=== PATIENT | female | born 1960 | race Caucasian/White ===

== ENCOUNTER 2021-05-29 00:19 | Inpatient (IN) | payer OTHER ==
[~2021-05-29] VITALS: Ht 154.9 cm; Wt 61.7 kg
[~2021-05-29 00:19] MED LIST: INSU3INS6 SQ; METF-416 PO
[2021-05-29] MEDS ORDERED: SODIUM CHLORIDE 0.9% 1000ML BAG (SEPSIS BOLUS) IV ONE (02:15)
[2021-05-29] MEDS ORDERED: CEFTRIAXONE 1 G PREMIX 50 ML IV ONE (02:15)
[2021-05-29 03:13] LABS: HEMATOCRIT. 36.3 % (36.0-48.0); HEMOGLOBIN. 12.4 g/dL (12.0-16.0); MEAN CORPUSCULAR HEMOGLOBIN 29.3 pg (28.0-32.0); MEAN CORPUSCULAR VOLUME 85.9 fL (81.0-99.0); PLATELET 199 x1000/uL (130-400); RED BLOOD CELL COUNT 4.23 mill/uL (4.2-5.4); RED CELL DISTRIBUTION WIDTH 12.5 % (11.6-14.6)
[2021-05-29 03:23] LABS: CHLORIDE 96 mEq/L (98-107)
[2021-05-29 04:13] LABS: PLATELET ESTIMATE NORMAL
[2021-05-29] MEDS ORDERED: ACETAMINOPHEN 325MG TABLET PO SCH (10:00)
[2021-05-29 12:55] VITALS: BP 101/49
[2021-05-29] MEDS ORDERED: ACETAMINOPHEN 325MG TABLET PO PRN (13:45)
[2021-05-29] MEDS ORDERED: HYDROCODONE/ACETAMINOPHEN 5/325MG TABLET PO PRN (13:45)
[2021-05-29] MEDS ORDERED: DEXTROSE 50% WATER 50ML SYRINGE IV PRN (13:45)
[2021-05-29] MEDS ORDERED: IPRATROPIUM/ALBUTEROL 0.5-3(2.5)MG/3ML NEB HHN PRN (13:45)
[2021-05-29] MEDS ORDERED: LORAZEPAM 0.5MG TABLET PO PRN (13:45)
[2021-05-29] MEDS ORDERED: NALOXONE HCL 0.4MG/ML VIAL IV PRN (14:00)
[2021-05-29] MEDS ORDERED: PIPERACILLIN/TAZOBACTAM 3.375 G in DEXTROSE 5% WATER 50 ML IV SCH (14:00)
[2021-05-29 16:00] VITALS: BP 91/43
[2021-05-29] MEDS: BLOOD SUGAR DIAGNOSTIC STRIP TEST SCH ×2 (17:18→21:23)
[2021-05-29] MEDS: SODIUM CHLORIDE 0.9% 1,000 ML IV SCH (18:20)
[2021-05-29] MEDS: INSULIN LISPRO 100 UNITS/ML SUBCUT SCH ×2 (18:22→21:24)
[2021-05-29 20:00] VITALS: BP 102/43
[2021-05-29 20:56] LABS: PHOSPHORUS 2.1 mg/dL (2.5-4.9)
[2021-05-29] MEDS: MORPHINE SULFATE 2 MG/ML CPJ (NOT FOR IM USE) IV PRN (21:23)
[2021-05-29] MEDS: PIPERACILLIN/TAZOBACTAM 3.375 G in DEXTROSE 5% WATER 50 ML IV SCH (21:23)
[2021-05-29] MEDS ORDERED: INSULIN GLARGINE UD 100 UNITS/ML SYR SUBCUT SCH ×2 (22:00→22:30)
[2021-05-30] VITALS: BP 100/48
[2021-05-30 04:00] VITALS: BP 106/39
[2021-05-30] MEDS: PIPERACILLIN/TAZOBACTAM 3.375 G in DEXTROSE 5% WATER 50 ML IV SCH ×2 (05:45→13:34)
[2021-05-30] MEDS: SODIUM CHLORIDE 0.9% 1,000 ML IV SCH ×3 (05:46→22:05)
[2021-05-30] MEDS: BLOOD SUGAR DIAGNOSTIC STRIP TEST SCH ×4 (06:08→21:00)
[2021-05-30 06:18] LABS: HEMATOCRIT. 32.1 % (36.0-48.0); MEAN CORPUSCULAR HEMOGLOBIN 29.2 pg (28.0-32.0); MEAN CORPUSCULAR VOLUME 85.2 fL (81.0-99.0); MEAN PLATELET VOLUME 10.3 fl (7.4-10.4); PLATELET 183 x1000/uL (130-400); RED BLOOD CELL COUNT 3.76 mill/uL (4.2-5.4); RED CELL DISTRIBUTION WIDTH 12.5 % (11.6-14.6)
[2021-05-30 06:58] LABS: CHLORIDE 104 mEq/L (98-107)
[2021-05-30 07:09] LABS: CLARITY URINE CLOUDY (CLEAR); COLOR URINE YELLOW (YELLOW); KETONES URINE 1+ (NEGATIVE); LEUKOCYTE ESTERASE URINE 1+ (NEGATIVE); NITRITE URINE NEGATIVE (NEGATIVE); OCCULT BLOOD URINE TRACE (NEGATIVE); PH URINE 5.5 (4.5-8.0); PROTEIN URINE 2+ (NEGATIVE); SPECIFIC GRAVITY URINE 1.023 (1.005-1.030); UROBILINOGEN URINE 0.2 E.U./dL (0.2-1.0)
[2021-05-30 07:30] LABS: *AMPHETAMINES SCREEN URINE NEGATIVE (NEGATIVE); *BARBITURATES SCREEN URINE NEGATIVE (NEGATIVE)
[2021-05-30 07:31] LABS: *BENZODIAZEPINES SCREEN URINE NEGATIVE (NEGATIVE); *COCAINE SCREEN URINE NEGATIVE (NEGATIVE); CANNABINOID URINE SCREEN NEGATIVE (NEGATIVE); METHADONE URINE SCREEN NEGATIVE (NEGATIVE); OPIATES URINE SCREEN PRESUMTIVE POSITIVE (NEGATIVE); PHENCYCLIDINE URINE SCREEN NEGATIVE (NEGATIVE)
[2021-05-30 08:11] VITALS: BP 138/78
[2021-05-30] MEDS: INSULIN LISPRO 100 UNITS/ML SUBCUT SCH ×4 (08:15→22:08)
[2021-05-30] MEDS ORDERED: BISACODYL 10MG SUPP PR SCH (08:15)
[2021-05-30] MEDS: MORPHINE SULFATE 2 MG/ML CPJ (NOT FOR IM USE) IV PRN ×2 (08:16→23:11)
[2021-05-30 12:23] VITALS: BP 111/63
[2021-05-30] MEDS: INSULIN GLARGINE UD 100 UNITS/ML SYR SUBCUT SCH ×2 (13:35→22:09)
[2021-05-30] MEDS: ONDANSETRON HCL 4MG/2ML INJ IV PRN ×2 (14:08→23:01)
[2021-05-30 16:30] VITALS: BP 136/59
[2021-05-30] MEDS ORDERED: CEFTRIAXONE 2 G PREMIX 50 ML IV SCH (19:45)
[2021-05-30 20:00] VITALS: BP 108/48
[2021-05-30 21:29] LABS: PLATELET ESTIMATE NORMAL
[2021-05-30] MEDS: CEFTRIAXONE 2 G in DEXTROSE 5% WATER 50 ML IV SCH (22:05)
[2021-05-31] VITALS: BP 122/59
[2021-05-31 04:00] VITALS: BP 138/72
[2021-05-31 06:27] LABS: CHLORIDE 102 mEq/L (98-107)
[2021-05-31 06:32] LABS: BASOPHILS % 0.3 % (0.0-2.0); EOSINOPHILS % 0.1 % (0.0-5.0); HEMATOCRIT. 32.7 % (36.0-48.0); HEMOGLOBIN. 10.9 g/dL (12.0-16.0); LYMPHOCYTES % 7.2 % (20.0-50.0); MEAN CORPUSCULAR HEMOGLOBIN 28.4 pg (28.0-32.0); MEAN PLATELET VOLUME 10.6 fl (7.4-10.4); MONOCYTES % 7.5 % (2.0-8.0); NEUTROPHILS % 84.9 % (40.0-76.0); PLATELET 208 x1000/uL (130-400); RED BLOOD CELL COUNT 3.85 mill/uL (4.2-5.4); RED CELL DISTRIBUTION WIDTH 12.7 % (11.6-14.6)
[2021-05-31] MEDS: BLOOD SUGAR DIAGNOSTIC STRIP TEST SCH ×4 (06:42→21:00)
[2021-05-31 08:00] VITALS: BP 130/51
[2021-05-31] MEDS: INSULIN LISPRO 100 UNITS/ML SUBCUT SCH ×4 (08:49→22:13)
[2021-05-31] MEDS: ONDANSETRON HCL 4MG/2ML INJ IV PRN ×2 (08:55→16:30)
[2021-05-31] MEDS: INSULIN GLARGINE UD 100 UNITS/ML SYR SUBCUT SCH ×2 (09:57→22:12)
[2021-05-31] MEDS: SODIUM CHLORIDE 0.9% 1,000 ML IV SCH ×2 (10:48→22:10)
[2021-05-31] MEDS: MORPHINE SULFATE 2 MG/ML CPJ (NOT FOR IM USE) IV PRN ×2 (11:45→16:30)
[2021-05-31 12:00] VITALS: BP 138/57
[2021-05-31] MEDS: FAMOTIDINE 20MG TABLET PO SCH ×2 (12:37→22:11)
[2021-05-31 16:00] VITALS: BP 171/78
[2021-05-31] MEDS: CLONIDINE 0.1MG TABLET PO PRN (16:02)
[2021-05-31] MEDS: AMLODIPINE 5MG TABLET PO SCH (17:54)
[2021-05-31 20:00] VITALS: BP 92/60
[2021-05-31] MEDS: CEFTRIAXONE 2 G in DEXTROSE 5% WATER 50 ML IV SCH (22:11)
[2021-06-01] VITALS: BP 91/50
[2021-06-01] MEDS: MORPHINE SULFATE 2 MG/ML CPJ (NOT FOR IM USE) IV PRN (00:15)
[2021-06-01] MEDS: ONDANSETRON HCL 4MG/2ML INJ IV PRN ×3 (00:15→22:46)
[2021-06-01 04:00] VITALS: BP 139/63
[2021-06-01] MEDS: SODIUM CHLORIDE 0.9% 1,000 ML IV SCH ×2 (05:48→17:14)
[2021-06-01] MEDS: BLOOD SUGAR DIAGNOSTIC STRIP TEST SCH ×4 (05:48→21:05)
[2021-06-01 07:15] LABS: HEMATOCRIT. 33.9 % (36.0-48.0); HEMOGLOBIN. 11.3 g/dL (12.0-16.0); MEAN CORPUSCULAR HEMOGLOBIN 28.2 pg (28.0-32.0); MEAN CORPUSCULAR VOLUME 84.6 fL (81.0-99.0); MEAN PLATELET VOLUME 10.2 fl (7.4-10.4); PLATELET 198 x1000/uL (130-400); RED BLOOD CELL COUNT 4.01 mill/uL (4.2-5.4)
[2021-06-01 07:26] LABS: CHLORIDE 100 mEq/L (98-107)
[2021-06-01] MEDS: INSULIN LISPRO 100 UNITS/ML SUBCUT SCH ×4 (07:50→21:00)
[2021-06-01 08:00] VITALS: BP 144/70
[2021-06-01] MEDS: AMLODIPINE 5MG TABLET PO SCH (09:01)
[2021-06-01] MEDS: FAMOTIDINE 20MG TABLET PO SCH ×2 (09:01→21:08)
[2021-06-01] MEDS: INSULIN GLARGINE UD 100 UNITS/ML SYR SUBCUT SCH ×2 (10:42→21:06)
[2021-06-01 12:30] VITALS: BP 141/55
[2021-06-01 16:00] VITALS: BP 119/56
[2021-06-01 17:04] LABS: PLATELET ESTIMATE NORMAL
[2021-06-01] MEDS: METOCLOPRAMIDE HCL 10MG/2ML VIAL IV PRN (17:11)
[2021-06-01] MEDS: ACETAMINOPHEN 325MG TABLET PO PRN (17:14)
[2021-06-01 20:00] VITALS: BP 117/55
[2021-06-01] MEDS: CEFTRIAXONE 2 G in DEXTROSE 5% WATER 50 ML IV SCH (21:08)
[2021-06-02] VITALS (7 sets, daily range): BP systolic 122–184; BP diastolic 58–85
[2021-06-02] MEDS ORDERED: POTASSIUM CHLORIDE INJ 40 MEQ in DEXT 5% WATER 250 ML IV ONE (00:15)
[2021-06-02] MEDS: ACETAMINOPHEN 325MG TABLET PO PRN (00:45)
[2021-06-02] MEDS ORDERED: KCL 20MEQ/100ML PREMIX 100 ML IV NR ×2 (01:00→03:00)
[2021-06-02] MEDS: SODIUM CHLORIDE 0.9% 1,000 ML IV SCH ×3 (02:00→22:23)
[2021-06-02] MEDS: BLOOD SUGAR DIAGNOSTIC STRIP TEST SCH ×4 (06:24→20:28)
[2021-06-02 07:12] LABS: BASOPHILS % 0.6 % (0.0-2.0); HEMATOCRIT. 35.9 % (36.0-48.0); HEMOGLOBIN. 12.5 g/dL (12.0-16.0); MEAN CORPUSCULAR HEMOGLOBIN 28.9 pg (28.0-32.0); MEAN CORPUSCULAR VOLUME 83.1 fL (81.0-99.0); MEAN PLATELET VOLUME 9.7 fl (7.4-10.4); MONOCYTES % 6.3 % (2.0-8.0); NEUTROPHILS % 84.1 % (40.0-76.0); PLATELET 207 x1000/uL (130-400); RED BLOOD CELL COUNT 4.32 mill/uL (4.2-5.4); RED CELL DISTRIBUTION WIDTH 12.8 % (11.6-14.6)
[2021-06-02 07:25] LABS: CHLORIDE 99 mEq/L (98-107)
[2021-06-02] MEDS: FAMOTIDINE 20MG TABLET PO SCH ×2 (08:45→20:39)
[2021-06-02] MEDS: AMLODIPINE 5MG TABLET PO SCH (08:46)
[2021-06-02] MEDS: INSULIN LISPRO 100 UNITS/ML SUBCUT SCH ×4 (08:47→20:29)
[2021-06-02] MEDS ORDERED: LIDOCAINE HCL 1% 10 MG/ML 10ML VIAL ONE (09:50)
[2021-06-02] MEDS: INSULIN GLARGINE UD 100 UNITS/ML SYR SUBCUT SCH ×2 (10:57→21:12)
[2021-06-02] MEDS: ONDANSETRON HCL 4MG/2ML INJ IV PRN (19:41)
[2021-06-02] MEDS: CLONIDINE 0.1MG TABLET PO PRN (20:38)
[2021-06-02] MEDS: CEFTRIAXONE 2 G in DEXTROSE 5% WATER 50 ML IV SCH (20:39)
[2021-06-02] MEDS: METOCLOPRAMIDE HCL 10MG/2ML VIAL IV PRN (20:39)
[2021-06-02] MEDS ORDERED: HYDRALAZINE 20MG/ML VIAL IV PRN (22:15)
[2021-06-03] VITALS: BP 146/71
[2021-06-03 04:00] VITALS: BP 106/59
[2021-06-03] MEDS: BLOOD SUGAR DIAGNOSTIC STRIP TEST SCH ×4 (07:41→20:50)
[2021-06-03] MEDS: INSULIN LISPRO 100 UNITS/ML SUBCUT SCH ×4 (07:41→20:56)
[2021-06-03 08:00] VITALS: BP 124/64
[2021-06-03] MEDS: SODIUM CHLORIDE 0.9% 1,000 ML IV SCH ×2 (08:51→17:56)
[2021-06-03] MEDS: FAMOTIDINE 20MG TABLET PO SCH ×2 (08:51→20:49)
[2021-06-03] MEDS: AMLODIPINE 5MG TABLET PO SCH (08:51)
[2021-06-03] MEDS: INSULIN GLARGINE UD 100 UNITS/ML SYR SUBCUT SCH ×2 (09:58→21:35)
[2021-06-03 11:50] VITALS: BP 108/55
[2021-06-03 15:45] VITALS: BP 127/62
[2021-06-03] MEDS: DOCUSATE SODIUM 100MG CAPSULE PO PRN (16:07)
[2021-06-03 20:00] VITALS: BP 140/68
[2021-06-03] MEDS: CEFTRIAXONE 2 G in DEXTROSE 5% WATER 50 ML IV SCH (20:49)
[2021-06-04] VITALS: BP 155/74
[2021-06-04] MEDS: DOCUSATE SODIUM 100MG CAPSULE PO PRN ×2 (02:36→17:57)
[2021-06-04 04:00] VITALS: BP 169/73
[2021-06-04] MEDS: SODIUM CHLORIDE 0.9% 1,000 ML IV SCH ×2 (04:23→17:56)
[2021-06-04] MEDS: ONDANSETRON HCL 4MG/2ML INJ IV PRN (04:23)
[2021-06-04] MEDS: METOCLOPRAMIDE HCL 10MG/2ML VIAL IV PRN ×2 (05:34→22:31)
[2021-06-04] MEDS: BLOOD SUGAR DIAGNOSTIC STRIP TEST SCH ×4 (07:21→20:44)
[2021-06-04] MEDS: INSULIN LISPRO 100 UNITS/ML SUBCUT SCH ×4 (07:50→20:57)
[2021-06-04 08:00] VITALS: BP 156/72
[2021-06-04 08:14] LABS: BASOPHILS % 0.3 % (0.0-2.0); EOSINOPHILS % 0.1 % (0.0-5.0); HEMATOCRIT. 39.8 % (36.0-48.0); HEMOGLOBIN. 12.8 g/dL (12.0-16.0); MEAN CORPUSCULAR VOLUME 87.1 fL (81.0-99.0); MEAN PLATELET VOLUME 8.2 fl (7.4-10.4); MONOCYTES % 6.4 % (2.0-8.0); NEUTROPHILS % 80.2 % (40.0-76.0); PLATELET 321 x1000/uL (130-400); RED BLOOD CELL COUNT 4.56 mill/uL (4.2-5.4); RED CELL DISTRIBUTION WIDTH 12.9 % (11.6-14.6)
[2021-06-04 08:18] LABS: CHLORIDE 101 mEq/L (98-107)
[2021-06-04] MEDS: AMLODIPINE 5MG TABLET PO SCH (10:11)
[2021-06-04] MEDS: FAMOTIDINE 20MG TABLET PO SCH ×2 (10:11→20:44)
[2021-06-04] MEDS: INSULIN GLARGINE UD 100 UNITS/ML SYR SUBCUT SCH ×2 (10:14→21:02)
[2021-06-04 12:00] VITALS: BP 156/67
[2021-06-04 16:00] VITALS: BP 127/63
[2021-06-04 20:00] VITALS: BP 123/69
[2021-06-04] MEDS: CEFTRIAXONE 2 G in DEXTROSE 5% WATER 50 ML IV SCH (20:44)
[2021-06-04] MEDS ORDERED: POTASSIUM CHLORIDE 20MEQ TABLET SR PO NR (20:45)
[2021-06-04] MEDS ORDERED: LACTULOSE 20G/30ML UDC PO PRN (21:00)
[2021-06-05] VITALS: BP 139/68
[2021-06-05] MEDS: SODIUM CHLORIDE 0.9% 1,000 ML IV SCH ×3 (00:48→23:05)
[2021-06-05 04:00] VITALS: BP 153/70
[2021-06-05] MEDS: BLOOD SUGAR DIAGNOSTIC STRIP TEST SCH ×4 (07:39→21:18)
[2021-06-05 07:46] LABS: BASOPHILS % 0.2 % (0.0-2.0); EOSINOPHILS % 0.4 % (0.0-5.0); HEMATOCRIT. 37.5 % (36.0-48.0); LYMPHOCYTES % 12.9 % (20.0-50.0); MEAN CORPUSCULAR HEMOGLOBIN 27.3 pg (28.0-32.0); MEAN CORPUSCULAR VOLUME 85.3 fL (81.0-99.0); MEAN PLATELET VOLUME 8.5 fl (7.4-10.4); NEUTROPHILS % 80.5 % (40.0-76.0); PLATELET 346 x1000/uL (130-400); RED CELL DISTRIBUTION WIDTH 12.9 % (11.6-14.6)
[2021-06-05 07:58] LABS: CHLORIDE 100 mEq/L (98-107)
[2021-06-05 08:00] VITALS: BP 127/79
[2021-06-05] MEDS: AMLODIPINE 5MG TABLET PO SCH (08:58)
[2021-06-05] MEDS: FAMOTIDINE 20MG TABLET PO SCH ×2 (08:58→21:15)
[2021-06-05] MEDS: INSULIN LISPRO 100 UNITS/ML SUBCUT SCH ×4 (08:58→21:18)
[2021-06-05] MEDS: INSULIN GLARGINE UD 100 UNITS/ML SYR SUBCUT SCH ×2 (10:56→21:17)
[2021-06-05 12:00] VITALS: BP_SYST 103; BP_SYST 164; BP_DIAS 103; BP_DIAS 73
[2021-06-05 16:00] VITALS: BP 145/73
[2021-06-05 20:00] VITALS: BP 147/72
[2021-06-05] MEDS: CEFTRIAXONE 2 G in DEXTROSE 5% WATER 50 ML IV SCH (21:24)
[2021-06-05] MEDS ORDERED: POTASSIUM CHLORIDE 20MEQ TABLET SR PO NR (22:52)
[2021-06-06] VITALS: BP 126/63
[2021-06-06 05:03] VITALS: BP 126/63
[2021-06-06] MEDS: BLOOD SUGAR DIAGNOSTIC STRIP TEST SCH ×2 (06:23→12:53)
[2021-06-06 06:32] LABS: BASOPHILS % 0.3 % (0.0-2.0); EOSINOPHILS % 0.4 % (0.0-5.0); HEMOGLOBIN. 11.5 g/dL (12.0-16.0); LYMPHOCYTES % 13.3 % (20.0-50.0); MEAN CORPUSCULAR HEMOGLOBIN 28.4 pg (28.0-32.0); MEAN CORPUSCULAR VOLUME 84.4 fL (81.0-99.0); MONOCYTES % 5.5 % (2.0-8.0); NEUTROPHILS % 80.5 % (40.0-76.0); PLATELET 329 x1000/uL (130-400); RED BLOOD CELL COUNT 4.03 mill/uL (4.2-5.4); RED CELL DISTRIBUTION WIDTH 12.7 % (11.6-14.6)
[2021-06-06 06:53] LABS: CHLORIDE 100 mEq/L (98-107)
[2021-06-06] MEDS: INSULIN LISPRO 100 UNITS/ML SUBCUT SCH ×2 (07:16→13:20)
[2021-06-06 07:53] VITALS: BP 143/68
[2021-06-06] MEDS: SODIUM CHLORIDE 0.9% 1,000 ML IV SCH (09:17)
[2021-06-06] MEDS: AMLODIPINE 5MG TABLET PO SCH (09:17)
[2021-06-06] MEDS: FAMOTIDINE 20MG TABLET PO SCH (09:20)
[2021-06-06] MEDS: INSULIN GLARGINE UD 100 UNITS/ML SYR SUBCUT SCH (09:25)
[2021-06-06] MEDS ORDERED: FAMO20TA8 PO (11:12)
[2021-06-06] MEDS ORDERED: AMLO5TAB88 PO (11:12)
[2021-06-06] MEDS ORDERED: LANTUSUD SUBCUT (11:12)
[2021-06-06] MEDS ORDERED: ATOR20TA65 MT (11:12)
[2021-06-06 12:30] VITALS: BP 99/57
[2021-06-06 12:44] VITALS: BP 99/57
== END 2021-06-06 15:31 | disposition home health service (06) | DRG 720 ==
LOC: ER 00:19 → 6WST 09:58 → EDBEDREQTM 10:02 → EDBEDREQSVC 10:02 → EDBEDREQ 10:02 → ENRESERV 11:15
PROVIDERS: ADMIT Internal Medicine; ATTEND Internal Medicine
PROC: 02HV33Z Insertion of Infusion Device into Superior Vena Cava, Percutaneous Approach (ICD-10-PCS; principal; 2021-06-02)
PROC: B548ZZA Ultrasonography of Superior Vena Cava, Guidance (ICD-10-PCS; 2021-06-02)
DX: A41.51 Sepsis due to Escherichia coli [E. coli] (principal); E83.39 Other disorders of phosphorus metabolism; E11.65 Type 2 diabetes mellitus with hyperglycemia; M79.7 Fibromyalgia; E78.1 Pure hyperglyceridemia; E78.5 Hyperlipidemia, unspecified; E87.6 Hypokalemia; R74.8 Abnormal levels of other serum enzymes; R65.20 Severe sepsis without septic shock; Z20.822 Contact with and (suspected) exposure to COVID-19; E87.1 Hypo-osmolality and hyponatremia; N12 Tubulo-interstitial nephritis, not specified as acute or chronic; M19.90 Unspecified osteoarthritis, unspecified site; Z79.4 Long term (current) use of insulin; Z90.710 Acquired absence of both cervix and uterus; Z79.84 Long term (current) use of oral hypoglycemic drugs; Z79.899 Other long term (current) drug therapy
CPT/HCPCS: 36415; 71045; 74176; 76937; 80048; 80053; 80061; 80305; 81003; 82962; 83036; 83605; 83735; 84100; 84145; 84443; 84484; 85025; 87077; 87186; 87426; 93005; 99291; C1725; J0360; J0696; J1815; J2270; J2405; J2543; J2765; J3480; J3490; J7030; J7060

== ENCOUNTER 2021-06-15 11:07 | Emergency (ER) | payer OTHER ==
[~2021-06-15] VITALS: Ht 157.5 cm; Wt 66.0 kg
[~2021-06-15 11:07] MED LIST changes: +AMLO5TAB88 PO; +ATOR20TA65 MT; +FAMO20TA8 PO; -INSU3INS6 SQ; +LANTUSUD SUBCUT
[2021-06-15 11:15] VITALS: BP 133/53
== END 2021-06-15 13:45 | disposition home or self-care (01) ==
LOC: ER 11:50
DX: Z46.82 Encounter for fitting and adjustment of non-vascular catheter (principal); E11.9 Type 2 diabetes mellitus without complications
CPT/HCPCS: 99281